=== PATIENT | female | born 1995 | race Caucasian/White ===

== ENCOUNTER → 2017-11-26 | Outpatient (CLI) | payer OTHER | LOC: M RAD 08:35 | DX: Z36.89 Encounter for other specified antenatal screening (principal); O32.1XX1 Maternal care for breech presentation, fetus 1; Z3A.21 21 weeks gestation of pregnancy | CPT/HCPCS: 76811 ==

== ENCOUNTER → 2018-01-21 | Outpatient (REF) | payer OTHER | LOC: M LAB REF 17:07 | DX: Z34.82 Encounter for supervision of other normal pregnancy, second trimester (principal) | CPT/HCPCS: 87086 ==

== ENCOUNTER 2018-03-10 12:46 | Outpatient (CLI) | payer OTHER ==
[2018-03-10] MEDS: ACETAMINOPHEN 500 MG TAB PO (14:39)
[2018-03-10 14:44] LABS: HEMATOCRIT 38.8 % (36.0-47.0); HEMOGLOBIN 12.8 g/dl (12.0-15.5); MEAN CORPUSCULAR HEMOGLOBIN 27.3 pg (27.0-33.0); MEAN CORPUSCULAR VOLUME 82.7 fl (80.0-96.0); PLATELET COUNT, AUTOMATED 137 10^3/uL (150-450); RED BLOOD COUNT 4.69 10^6/uL (4.00-5.40); WHITE BLOOD COUNT 10.5 10^3/uL (4.0-10.0)
[2018-03-10 15:12] LABS: ALT/SGPT 14 U/L (12-78); AST/SGOT 14 U/L (7-37); BILIRUBIN,TOTAL 0.3 MG/DL (0.2-1.0); CREATININE FOR GFR 0.47 MG/DL (0.55-1.30); GLOMERULAR FILTRATION RATE > 60.0 (>60); LDH LACTATE DEHYDROGENASE 197 U/L (84-246); URIC ACID 4.2 MG/DL (2.6-6.0)
[2018-03-10 15:59] LABS: CREATININE,RANDOM URINE 56.9 MG/DL
[2018-03-10 15:59] LABS: TOTAL PROTEIN,RANDOM URINE 6.2 MG/DL (0.0-12.0)
[2018-03-10] MEDS: oxyCODONE 5MG TAB PO (15:59)
== END 2018-03-10 16:30 | disposition home or self-care (01) ==
LOC: M LDO 12:46
DX: O99.89 Other specified diseases and conditions complicating pregnancy, childbirth and the puerperium (principal); R51 Headache; Z3A.37 37 weeks gestation of pregnancy
CPT/HCPCS: 59025

== ENCOUNTER → 2018-03-10 | Outpatient (REF) | payer OTHER | LOC: M LAB REF 17:50 | DX: O10.013 Pre-existing essential hypertension complicating pregnancy, third trimester (principal) | CPT/HCPCS: 87081 ==

== ENCOUNTER 2018-03-15 14:16 | Inpatient (IN) | payer OTHER ==
[2018-03-15] MEDS: LR 1,000 ML IV (00:30)
[2018-03-15 15:23] LABS: HEMATOCRIT 37.5 % (36.0-47.0); HEMOGLOBIN 12.1 g/dl (12.0-15.5); MEAN CORPUSCULAR HEMOGLOBIN 26.7 pg (27.0-33.0); MEAN CORPUSCULAR HGB CONC 32.3 g/dl (32.0-36.5); MEAN CORPUSCULAR VOLUME 82.8 fl (80.0-96.0); PLATELET COUNT, AUTOMATED 145 10^3/uL (150-450); RED BLOOD COUNT 4.53 10^6/uL (4.00-5.40); RED CELL DISTRIBUTION WIDTH 13.8 % (11.5-14.5); WHITE BLOOD COUNT 9.1 10^3/uL (4.0-10.0)
[2018-03-15 15:32] LABS: AMPHETAMINES URINE REFLEX NEGATIVE (NEGATIVE); BENZODIAZEPINES URINE REFLEX NEGATIVE (NEGATIVE); CANNABINOIDS URINE REFLEX NEGATIVE (NEGATIVE); COCAINE METABOLITE URINE REFLE NEGATIVE (NEGATIVE); METHADONE URINE REFLEX NEGATIVE (NEGATIVE); OPIATES URINE REFLEX NEGATIVE (NEGATIVE); PHENCYCLIDINE URINE REFLEX NEGATIVE (NEGATIVE)
[2018-03-15 15:34] LABS: ALT/SGPT 11 U/L (12-78); AST/SGOT 10 U/L (7-37); BILIRUBIN,TOTAL 0.2 MG/DL (0.2-1.0); CREATININE FOR GFR 0.61 MG/DL (0.55-1.30); GLOMERULAR FILTRATION RATE > 60.0 (>60); LDH LACTATE DEHYDROGENASE 182 U/L (84-246); URIC ACID 4.7 MG/DL (2.6-6.0)
[2018-03-15] MEDS: miSOPROStol 50 MCG 1/2 TAB (S0191) PO ×2 (16:19→20:20)
[2018-03-15 16:31] LABS: BARBITURATES URINE REFLEX PENDING CONFIRMATION (NEGATIVE)
[2018-03-15] MEDS: FIORICET TAB PO (20:06)
[2018-03-16] MEDS: OXYTOCIN DRIP 30 UNITS in APPROPRIATE DILUENT 1 EA IV (01:28)
[2018-03-16] MEDS ORDERED: FENTANYL 2MCG/ML ROPIVACAINE 0.2% IN 0.9% NACL 200ML IVBAG As Ordered (01:55)
[2018-03-16] MEDS ORDERED: ePHEDrine SULFATE 25 MG/5 ML(5MG/ML) SYRINGE IV (03:00)
[2018-03-16] MEDS ORDERED: LACTATED RINGER'S 1000 ML IV (03:00)
[2018-03-16] MEDS ORDERED: EPIDURAL/PCA KEYS XX (03:00)
[2018-03-16] MEDS ORDERED: NALOXONE INJ 0.4 MG/1 ML VIAL (J2310) IV (03:00)
[2018-03-16] MEDS ORDERED: REFRIGERATOR IV KEYS XX (03:00)
[2018-03-16] MEDS ORDERED: EPIDURAL COMMENT XX (03:00)
[2018-03-16] MEDS ORDERED: diphenhydrAMINE INJ 50MG/ML VIAL (J1200) IV (03:00)
[2018-03-16] MEDS ORDERED: FENTANYL/ROPIVACAINE/NACL BAG 200 ML EPIDURAL (03:00)
[2018-03-16] MEDS: FIORICET TAB PO ×3 (08:32→17:21)
[2018-03-16] MEDS: SERTRALINE HCL 50 MG TAB PO (08:33)
[2018-03-16] MEDS: ONDANSETRON 4MG/2ML VIAL (J2405) IV (08:33)
[2018-03-16] MEDS: LABETALOL 100 MG TAB PO (08:33)
[2018-03-16] MEDS: miSOPROStol 200 MCG TAB (S0191) PR (13:45)
[2018-03-16] MEDS ORDERED: MOM 30ML SUSPENSION UDC PO (14:00)
[2018-03-16] MEDS ORDERED: METHYLERGONOVINE MALEATE 0.2 MG TAB PO (14:00)
[2018-03-16] MEDS ORDERED: DIBUCAINE 1% OINTMENT 30GM TOP (14:00)
[2018-03-16] MEDS ORDERED: DOCUSATE SODIUM 100 MG CAP PO (14:00)
[2018-03-16] MEDS ORDERED: ANUSOL HC CREAM 30GM TOP (14:00)
[2018-03-16] MEDS: IBUPROFEN 800 MG TAB PO (18:36)
[2018-03-16] MEDS: ACETAMINOPHEN 500 MG TAB PO (18:37)
[2018-03-16] MEDS: PERCOCET 5MG/325MG TAB PO (19:57)
[2018-03-17] MEDS: PERCOCET 5MG/325MG TAB PO ×6 (00:51→20:26)
[2018-03-17] MEDS: IBUPROFEN 800 MG TAB PO ×3 (00:51→14:33)
[2018-03-17] MEDS: FIORICET TAB PO ×2 (04:14→11:42)
[2018-03-17] MEDS: RHOGAM 300 MCG (1500 IU) INJ (J2790) IM (07:21)
[2018-03-17] MEDS: MEASLES,MUMPS,RUBELLA VACCINE INJ (MMR-II) (90707) SC (07:21)
[2018-03-17] MEDS: LABETALOL 100 MG TAB PO (08:35)
[2018-03-17] MEDS: PRENATAL VITAMINS CHEWABLE TABLET PO (08:35)
[2018-03-17] MEDS: SERTRALINE HCL 50 MG TAB PO (11:39)
[2018-03-18] MEDS: PERCOCET 5MG/325MG TAB PO ×3 (01:39→09:50)
[2018-03-18] MEDS: LABETALOL 100 MG TAB PO (08:22)
[2018-03-18] MEDS: PRENATAL VITAMINS CHEWABLE TABLET PO (08:22)
[2018-03-18] MEDS: FIORICET TAB PO (08:22)
[2018-03-18] MEDS: SERTRALINE HCL 50 MG TAB PO (08:22)
[2018-03-20 00:29] LABS: Amobarbital Negative (Cutoff=200); Barbiturates Positive (.); Butalbital Positive (.); GC Butalbital 1412 ng/mL (Cutoff=200); Pentobarbital Negative (Cutoff=200); Secobarbital Negative (Cutoff=200)
== END 2018-03-18 10:45 | disposition home or self-care (01) | DRG 560 ==
LOC: M LDI 14:16 → M OBS 03-16 16:51
PROC: 3E033VJ Introduction of Other Hormone into Peripheral Vein, Percutaneous Approach (ICD-10-PCS; 2018-03-15)
PROC: 10E0XZZ Delivery of Products of Conception, External Approach (ICD-10-PCS; principal; 2018-03-16)
PROC: 10907ZC Drainage of Amniotic Fluid, Therapeutic from Products of Conception, Via Natural or Artificial Opening (ICD-10-PCS; 2018-03-16)
DX: O10.92 Unspecified pre-existing hypertension complicating childbirth (principal); O99.344 Other mental disorders complicating childbirth; F32.9 Major depressive disorder, single episode, unspecified; Z37.0 Single live birth; Z3A.37 37 weeks gestation of pregnancy